=== PATIENT | male | born 2000 | race Hispanic/Latino ===

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

== ENCOUNTER 2024-08-11 12:47 | Emergency (ER) | payer SELFPAY ==
--- NOTE | 2024-08-11 13:44 | RAD REPORT ---
Exam:Wrist Left 3 View HISTORY: Left wrist pain FINDINGS: No fracture or dislocation seen. Soft tissue laceration. A radiopaque foreign body is not seen.
[2024-08-11] MEDS ORDERED: LIDOCAINE 1% 20 ML MDV ONE (14:13)
[2024-08-11] MEDS ORDERED: LIDOCAINE 2% W/EPI 1:200,000 MPF 20 ML VIAL IM ONE (14:26)
--- NOTE | 2024-08-11 15:07 | EDPHYS ---
Physician Documentation [facility] Name: Kian Caldwell Age: 24 yrs Sex: Male : 2000 Arrival Date: 08/11/2024 Time: 12:47 Bed 18 Private MD: ED Physician Rodriguez Fierro HPI: 08/11 13:00 This 24 yrs old Male presents to ER via EMS with complaints of Laceration To cp Arm. 13:00 The patient has a laceration occurred at home, The injury was accidental, using pocket cp knife to cut string. The laceration(s) is(are) located on the volar side of left wrist. 13:00 Onset: The symptoms/episode began/occurred just prior to arrival. Associated signs and cp symptoms: The patient has no apparent associated signs or symptoms. Historical: - Allergies: 12:55 No Known Allergies; aa5 - PMHx: 12:55 ADHD; aa5 - Immunization history:: Last tetanus immunization: up to date. - Infectious Disease History:: Denies. - Social history:: Smoking status: . ROS: 13:05 MS/extremity: Positive for laceration, pain, of the volar side of left wrist, Negative cp for decreased range of motion, 13:05 Eyes: Negative for injury, pain, redness, and discharge, cp 13:05 Constitutional: Negative for body aches, chills, fever, 13:05 Cardiovascular: Negative for chest pain, palpitations, 13:05 Respiratory: Negative for cough, shortness of breath, wheezing, 13:05 Abdomen/GI: Negative for abdominal pain, vomiting, diarrhea, constipation, 13:05 All other systems are negative, Exam: 13:12 Constitutional: The patient appears in no acute distress, alert, awake, non-toxic, well cp developed, well nourished, uncomfortable, 13:12 Head/Face: Normocephalic, atraumatic. cp 13:12 Chest/axilla: Inspection: normal, 13:12 Cardiovascular: Rate: normal, Pulses: Pulses are 2+ in left radial artery. 13:12 Respiratory: the patient does not display signs of respiratory distress, Respirations: normal, no use of accessory muscles, no retractions, labored breathing, is not present, Breath sounds: are clear throughout, no decreased breath sounds, no stridor, no wheezing, 13:12 Abdomen/GI: Exam negative for discomfort, distension, guarding, Inspection: abdomen appears normal, 13:12 Back: pain, is absent, 13:12 Musculoskeletal/extremity: Extremities: noted in the volar side of left wrist: pain, tenderness, transverse laceration noted with partial laceration noted of radial side flexor tendon, ROM: full active range of motion, in the left hand and left wrist, Sensation intact. 13:12 Skin: injury, laceration(s), the wound is approximately 5.5 cm(s), of the volar side of left wrist, that can be described as clean, no foreign body, linear, with mild bleeding, Vital Signs: 12:49 BP 151 / 101; Pulse 83; Resp 16 S; Temp 97.6(TE); Pulse Ox 100% on R/A; aa5 15:00 BP 138 / 74; Pulse 78; Resp 16 S; Pulse Ox 100% on R/A; aa5 Laceration: 15:05 Wound Repair of 5.5cm ( 2.2in ) tendon involved laceration to volar side of left wrist. cp Linear shaped.. Distal neuro/vascular/tendon intact. Anesthesia: Local anesthetic administered with 8 mls of 2% lidocaine. Wound prep: Moderate cleansing by me, Wound irrigation by me, Copious irrigation. flexor tendon repair closed with 1 4-0 Vicryl using figure eight type stitch. Skin closed with 1 4-0 Prolene using running sutures and sterile technique. Dressed with Bacitracin, 4x4's. Patient tolerated well. MDM: 12:50 Medical Screening Exam initiated cp 13:00 Differential diagnosis: superficial laceration, tendon injury, vascular injury, open cp fracture. 15:05 Data reviewed: vital signs, nurses notes, radiologic studies, plain films, and as a cp result, I will discharge patient. 15:05 I considered the following discharge prescriptions or medication management in the emergency department Medications were administered in the Emergency Department. See MAR. Counseling: I had a detailed discussion with the patient and/or guardian regarding the historical points, exam findings, and any diagnostic results supporting the discharge/admit diagnosis, radiology results, to return to the emergency department if symptoms worsen or persist or if there are any questions or concerns that arise at home. Response to treatment: the patient's symptoms have markedly improved after treatment, and as a result, I will discharge patient. 03 12:51 Order name: XRAY Wrist LEFT 3 view; Complete Time: 14:19 cp 08/11 14:19 Interpretation: Report reviewed. cp 08/11 12:51 Order name: Dressing - Wound; Complete Time: 15:02 cp 08/11 12:51 Order name: Gloves, Sterile; Complete Time: 15:02 cp 08/11 12:51 Order name: Setup Suture Tray; Complete Time: 15:02 cp Administered Medications: 14:45 Drug: Lidocaine-Epinephrine Infiltration -2 % (1:100,000) 10 ml Infiltration once; to aa5 bedside {Note: administered by PA during laceration repair. .} Route: Infiltration; 15:25 Not Given (Physician Discretion): lidocaine(2 %) 10 ml 5 ml Infiltration once; to aa5 bedside Disposition: 08/12 08:22 Co-signature as Attending Physician, Rodriguez Fierro MD I reviewed the patient's care rn provided by the Advanced Practice Provider and agree with the diagnosis and treatment plan. Disposition Summary: 08/11/24 15:06 Discharge Ordered Notes: Location: Home cp Problem: new cp Symptoms: have improved cp Condition: Stable cp Diagnosis - Laceration of flexor muscle, fascia and tendon of left little finger at wrist and cp hand level, initial encounter Followup: cp - With: Private Physician - When: 10 - 14 days - Reason: Staple/Suture removal Discharge Instructions: - Discharge Summary Sheet cp - Laceration Care, Adult cp Forms: - Medication Reconciliation Form cp - Antibiotic Education cp - Prescription Opioid Use cp - Patient Portal Instructions cp - Leadership Thank You Letter cp Prescriptions: - Cephalexin 500 mg Oral Capsule - take 1 capsule ORAL route every 8 hours for 10 days; 30 capsule; Refills: 0, cp Product Selection Permitted Signatures: Dispatcher [employer] Rodriguez Mcqueen MD MD rn Calderon, Audri, RN RN aa5 Jv Soto PA PA cp Corrections: (The following items were deleted from the chart) 08/11 12:51 12:51 Wrist Left 3 View+[id number].BRZ ordered. [facility] 08/12 13:21 13:17 Wound Repair of 5.5cm ( 2.2in ) tendon involved laceration to volar side of left cp wrist. Linear shaped.. Distal neuro/vascular/tendon intact. Anesthesia: Local anesthetic administered with 8 mls of 2% lidocaine. Wound prep: Moderate cleansing by me, Wound irrigation by me, Copious irrigation. flexor tendon repair closed with 1 4-0 Vicryl using figure eight type stitch. Skin closed with 1 4-0 Prolene using running sutures and sterile technique. Dressed with Bacitracin, 4x4's. Patient tolerated well. cp
--- NOTE | 2024-08-11 15:07 | ER ---
Nurse's Notes [facility] Name: Kian Caldwell Age: 24 yrs Sex: Male : 2000 Arrival Date: 08/11/2024 Time: 12:47 Bed 18 Private MD: Diagnosis: Laceration of flexor muscle, fascia and tendon of left little finger at wrist and hand level, initial encounter Presentation: 08/11 12:49 Chief complaint: Patient states: sustained left wrist laceration while doing "yard aa5 work", pt states "I was cutting some string with my pocket knife". Laceration noted to left wrist, mild bleeding noted, gauze applied. 12:49 Acuity: CELSA 3 aa5 12:49 Method Of Arrival: EMS: [facility] aa5 12:49 Coronavirus screen: At this time, the client does not indicate any symptoms associated aa5 with coronavirus-19. Ebola Screen: Patient denies travel to an Ebola-affected area in the 21 days before illness onset. Complicating Factors: There are no complicating factors for this patient. Initial Sepsis Screen: Does the patient meet any 2 criteria? No. Patient's initial sepsis screen is negative. Does the patient have a suspected source of infection? No. Patient's initial sepsis screen is negative. Risk Assessment: Do you want to hurt yourself or someone else? Patient reports no desire to harm self or others. Onset of symptoms was August 11, 2024. Historical: - Allergies: 12:55 No Known Allergies; aa5 - PMHx: 12:55 ADHD; aa5 - Immunization history:: Last tetanus immunization: up to date. - Infectious Disease History:: Denies. - Social history:: Smoking status: . Screenin:50 [facility] ED Fall Risk Assessment (Adult) History of falling in the last 3 months, aa5 including since admission No falls in past 3 months (0 pts) Confusion or Disorientation No (0 pts) Intoxicated or Sedated No (0 pts) Impaired Gait No (0 pts) Mobility Assist Device Used No (0 pt) Altered Elimination No (0 pt) Score/Fall Risk Level 0 - 2 = Low Risk Oriented to surroundings, Maintained a safe environment, Educated pt \\T\\ family on fall prevention, incl call for assistance when getting out of bed, Assessed \\T\\ reinforced patient's understanding of fall precautions. Abuse screen: Denies threats or abuse. Nutritional screening: No deficits noted. Tuberculosis screening: No symptoms or risk factors identified. Assessment: 12:50 General: Appears comfortable, Behavior is calm, cooperative. Pain: Complains of pain in aa5 palmar aspect of left wrist Pain currently is 7 out of 10 on a pain scale. Quality of pain is described as throbbing, Is continuous. Neuro: Level of Consciousness is awake, alert, obeys commands, Oriented to person, place, time, situation. Cardiovascular: Patient's skin is warm and dry. Respiratory: Airway is patent Respiratory effort is even, unlabored, Respiratory pattern is regular, symmetrical. GI: No signs and/or symptoms were reported involving the gastrointestinal system. : No signs and/or symptoms were reported regarding the genitourinary system. EENT: No signs and/or symptoms were reported regarding the EENT system. Derm: Skin is pink, warm \\T\\ dry. Musculoskeletal: Circulation, motion, and sensation intact. Range of motion: intact in all extremities. Injury Description: Laceration sustained to palmar aspect of left wrist is clean, 2.6 to 7.5 cm long, mild bleeding noted. Laceration with tendon exposure and tendon appears to be partially lacerated. 15:00 Reassessment: Patient is alert, oriented x 3, equal unlabored respirations, skin aa5 warm/dry/pink. 15:40 Reassessment: Patient is alert, oriented x 3, equal unlabored respirations, skin aa5 warm/dry/pink. Patient states feeling better. Vital Signs: 12:49 BP 151 / 101; Pulse 83; Resp 16 S; Temp 97.6(TE); Pulse Ox 100% on R/A; aa5 15:00 BP 138 / 74; Pulse 78; Resp 16 S; Pulse Ox 100% on R/A; aa5 ED Course: 12:49 Patient arrived in ED. aa5 12:50 Jv Soto PA is PHCP. cp 12:50 Jv Waters MD is Attending Physician. cp 12:50 Arm band placed on Patient placed in an exam room, on a stretcher. aa5 12:50 Patient has correct armband on for positive identification. Bed in low position. Call aa5 light in reach. Side rails up X 1. Pulse ox on. NIBP on. 12:52 Fierro, Rodriguez, MD is Attending Physician. cp 12:52 Triage completed. aa5 12:55 Bobbi Shukla, RN is Primary Nurse. aa5 13:15 XRAY Wrist LEFT 3 view In Process Unspecified. EDMS 14:45 Assist provider with laceration repair on left wrist using sutures. Set up tray. aa5 Performed by Jv Soto PA Dressed with 4X4s, Neosporin, [place] Patient tolerated well. 15:40 Patient did not have IV access during this emergency room visit. aa5 Administered Medications: 14:45 Drug: Lidocaine-Epinephrine Infiltration -2 % (1:100,000) 10 ml Infiltration once; to aa5 bedside {Note: administered by PA during laceration repair. .} Route: Infiltration; 15:25 Not Given (Physician Discretion): lidocaine(2 %) 10 ml 5 ml Infiltration once; to aa5 bedside Medication: 14:45 VIS not applicable for this client. aa5 Outcome: 15:06 Discharge ordered by MD. cp 15:40 Discharged to home ambulatory, with friend, aa5 15:40 Condition: good 15:40 Discharge instructions given to patient, Instructed on discharge instructions, follow up and referral plans. medication usage, Demonstrated understanding of instructions, follow-up care, medications, wound care, Prescriptions given X 1, 15:42 Patient left the ED. aa5 Signatures: Dispatcher [employer] EDMS Bobbi Shukla, RN RN aa5 Jv Soto PA PA cp Corrections: (The following items were deleted from the chart) 15:26 12:49 BP 151 / 101; Pulse 83bpm; Resp 16bpm; Spontaneous; Pulse Ox 100% RA; aa5 aa5
[2024-08-11 16:03] VITALS: BP 151/101; TEMP 97.6; O2SAT 100
== END 2024-08-11 15:42 | disposition home or self-care (01) ==
LOC: ER 12:47
DX: S66.127A Laceration of flexor muscle, fascia and tendon of left little finger at wrist and hand level, initial encounter (principal)
CPT/HCPCS: 99284; J2003